=== PATIENT | female | born 2000 | race Caucasian/White ===

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

== ENCOUNTER 2020-08-29 23:19 | Emergency (ER) | payer OTHER, MEDICAID ==
[~2020-08-29] VITALS: Ht 167.6 cm; Wt 68.0 kg
[~2020-08-29 23:19] MED LIST changes: +AUGMENTIN 875-1 EACH PO; +VENTOLIN HFA 1818 GM INH
[2020-08-29] MEDS ORDERED: DOXYCYCLINE 10100 MG PO (23:46)
[2020-08-29 23:49] VITALS: BP 132/54
== END 2020-08-29 23:50 | disposition home or self-care (01) ==
LOC: M.ERS 23:19
DX: H60.01 Abscess of right external ear (principal); L53.8 Other specified erythematous conditions; F17.210 Nicotine dependence, cigarettes, uncomplicated